=== PATIENT | female | born 1965 | race Caucasian/White ===

== ENCOUNTER → 2016-10-10 | Day surgery (SDC) | payer OTHER ==
--- NOTE | 2016-10-11 11:54 | PATH ---
Surgical Pathology Report Patient Name: GLENN MERCHANT [facility]. Rec. #: [id number] /Age/Gender: 1965 (Age: 51) / F Account: [id number] Location: [facility] RADIOLOGY U Taken: 10/10/2016 Received: 10/10/2016 Reported: 10/11/2016 Physicians: Scott Reynaga M.D. Specimen(s) Received LEFT BREAST 6:00 O'CLOCK 2 CM FN Clinical History Suspicious Left hypocholic mass 6:00, 2fn Final Diagnosis LEFT BREAST, 6:00 2 CM FROM NIPPLE, ULTRASOUND GUIDED NEEDLE CORE BIOPSY: BENIGN BREAST TISSUE WITH FIBROCYSTIC CHANGES INCLUDING STROMAL FIBROSIS AND DUCTAL DILATATION. Comment: Recommend correlation with clinical and radiologic findings and follow up as clinically indicated. Electronically Signed Edward Ford M.D. Gross Description Received in formalin labeled "left breast biopsy 6:00, 2cmfn," is a 1.8 x 1.4 x 0.2 cm aggregate of multiple kirk-yellow, irregular to cylindrical portions of fibroadipose tissue admixed with blood clot. The formalin is filtered and the specimen is entirely submitted in one cassette. Time to formalin fixation: 3 minutes Total formalin fixation time: Approximately 7 hours. /10/10/201610/10/2016
== END | disposition home or self-care (01) ==
LOC: FRADUS-SUR 09:54
PROVIDERS: ATTEND Internal Medicine Geriatric Medicine
PROC: 0HBU3ZX Excision of Left Breast, Percutaneous Approach, Diagnostic (ICD-10-PCS; principal; 2016-10-10)
DX: N63 Unspecified lump in breast (principal); N60.32 Fibrosclerosis of left breast; N64.89 Other specified disorders of breast
CPT/HCPCS: 19083; 87899; 88305-TC; A4648; G0206-TC

== ENCOUNTER 2017-06-23 07:16 | Emergency (ER) | payer OTHER ==
[2017-06-23 07:45] VITALS: BP 138/84; PULSE 94; TEMP 98.6; BMI 28.1
--- NOTE | 2017-06-23 09:08 | PDOC ---
History of Present Illness - General Chief Complaint: Rash Stated Complaint: RT SIDE PAIN Time Seen by Provider: 06/23/17 08:55 History Source: Patient Exam Limitations: No Limitations - History of Present Illness Initial Comments: 06/23/17 09:03 Patient states developed rash under right breast and around flank approximate 5 days ago. States had some tenderness and pain to that same side Monday. Onset of vesicular type rash started Monday and is progressively worsened. Was concerned that may be an ALLERGIC reaction so was using some [id number] medications but has not resolved. And in fact has spread. It had a mild URI symptoms last week. No fevers, no earache sore throat coughing sneezing. Numbness or tingling to hands no injury. Timing/Duration: reports: just prior to arrival, getting worse Severity: Yes: moderate Respiratory Risk Factors: reports: no cause identified Modifying Factors: improves with: antihistamine, scratching Associated Symptoms: reports: denies symptoms, blisters, change in skin texture. denies: fever Past History - Travel Traveled outside of the country in the last 30 days: No Close contact w/someone who was outside of country & ill: No - Past Medical History Allergies/Adverse Reactions: Allergies Allergy/AdvReac Type Severity Reaction Status Date / Time Penicillins Allergy Verified 06/23/17 07:22 SEAFOOD Allergy Uncoded 06/23/17 07:22 Home Medications: Ambulatory Orders Meclizine HCl [Antivert -] 25 mg PO TID #21 tablet 01/04/16 Multivitamins [Tab-A-Vit -] 1 tab PO DAILY 01/04/16 Valacyclovir HCl [Valtrex] 1,000 mg PO TID #21 tablet 06/23/17 Anemia: No Asthma: No Cancer: No Cardiac Disorders: No CVA: No COPD: No CHF: No Dementia: No Diabetes: No GI Disorders: No Disorders: No HTN: No Hypercholesterolemia: No Liver Disease: No Seizures: No Thyroid Disease: No Other medical history: DENIES. - Surgical History Abdominal Surgery: No Appendectomy: No Cardiac Surgery: No Cholecystectomy: No Lung Surgery: No Neurologic Surgery: No Orthopedic Surgery: No - Suicide/Smoking/Psychosocial Hx Smoking Status: No Smoking History: Never smoked Have you smoked in the past 12 months: No Number of Cigarettes Smoked Daily: 0 Hx Alcohol Use: No Drug/Substance Use Hx: No Substance Use Type: Alcohol Hx Substance Use Treatment: No Review of Systems - Review of Systems Able to Perform ROS?: Yes Is the patient limited Romansh proficient: Yes Constitutional: Yes: Symptoms Reported, See HPI, Fever, Malaise HEENTM: Yes: Symptoms Reported, See HPI, Nose Congestion, Throat Pain, Throat Swelling Respiratory: Yes: Symptoms reported, See HPI, Cough, Wheezing. No: Shortness of Breath Musculoskeletal: Yes: Symptoms Reported, See HPI Integumentary: Yes: Symptoms Reported, See HPI, Lesions, Pruritus, Rash, Other All Other Systems: Reviewed and Negative *Physical Exam - Vital Signs Last Vital Signs Temp Pulse Resp BP Pulse Ox 98.6 F 94 H 19 138/84 99 06/23/17 07:22 06/23/17 07:22 06/23/17 07:22 06/23/17 07:22 06/23/17 07:22 - Physical Exam General Appearance: Yes: Nourished, Appropriately Dressed, Apparent Distress, Mild Distress HEENT: positive: CEDRICK, Normal ENT Inspection, TMs Normal, Pharynx Normal Neck: positive: Supple Respiratory/Chest: positive: Lungs Clear, Other (patient with grouped vesicular lesions noted under right breast and along T8 dermatome consistent with appearance of shingles, unilateral, and multiple grouped areas) Gastrointestinal/Abdominal: positive: Soft. negative: Tender Extremity: positive: Normal Capillary Refill, Normal Inspection, Normal Range of Motion Integumentary: positive: Pale, Rash Neurologic: positive: trial mgr II-XII NML intact, Fully Oriented, Alert, Normal Mood/ Affect, Normal Response Progress Note - Progress Note Progress Note: Shingles to right chest wall. We'll treat with Valtrex, and patient encouraged to follow-up with employee health as should not be working until lesions have scabbed *DC/Admit/Observation/Transfer Diagnosis at time of Disposition: Shingles Qualifiers: Herpes zoster complications: without complications Qualified Code(s): B02.9 - Zoster without complications - Discharge Dispostion Disposition: HOME Condition at time of disposition: Stable - Prescriptions Prescriptions: Valacyclovir HCl [Valtrex] 1,000 mg PO TID #21 tablet - Referrals - Patient Instructions Printed Discharge Instructions: DI for Shingles Additional Instructions: Rest, keep cool and dry- avoid strenuous activity or hot /humid environments Less hot showers, no abrasive soaps May use heavy creams like Eucerin or Cetaphil to keep skin moist May apply Aveeno, calamine lotion, [id number]-[id number] hydrocortisone creams as needed for symptoms May use Benadryl at night for antihistamine, Zyrtec/ Flori or Claritin for daytime antihistamine use to help with itching This infection is secondary to same virus as chickenpox. If not contagious unless there are skin contact. However important to avoid association with very old, immunosuppressed, or very young patients who may not have been vaccinated against herpes zoster. You will need clearance from your physician to return to work Valtrex 1 g every 8 hours for one week May use eplt-ojf-xftylss hydrocortisone cream on all areas except face Try to identify cause for rash and avoid exposures Followup with PMD in one week if no resolution Make appointment with reading efficiency course director for evaluation when possible - Post Discharge Activity Forms/Work/School Notes: Back to Work
== END 2017-06-23 09:00 | disposition home or self-care (01) ==
LOC: JER 07:16
DX: B02.9 Zoster without complications (principal)
CPT/HCPCS: 99281-25

== ENCOUNTER 2017-12-06 07:09 | Emergency (ER) | payer OTHER ==
[2017-12-06 07:34] VITALS: BMI 29.0
--- NOTE | 2017-12-06 08:31 | PDOC ---
History of Present Illness - General Chief Complaint: Injury Stated Complaint: RIGHT FOOT INJURY Time Seen by Provider: 12/06/17 07:45 - History of Present Illness Initial Comments: 12/06/17 08:29 "The patient is a 52 year old female, with a significant past medical history of chronic back pain, who presents to the emergency department with left toe pain s/p left foot injury yesterday. The patient reports stubbing her left 5th toe into a chair while walking yesterday. Pt reports pain without swelling. States that she is able to ambulate without any pain. However, when she put on her shoe this morning, the pain increased. She denies any other trauma or injury. Patient reports she has been taking Tylenol for her symptoms with mild relief. She has been taping her toes left 4th and 5th toes with mild relief of pain. Allergies: Penicillins Past Surgical History: None reported Social History: Social ETOH use. No tobacco or recreational drug use. " Past History - Past Medical History Allergies/Adverse Reactions: Allergies Allergy/AdvReac Type Severity Reaction Status Date / Time Penicillins Allergy Verified 06/23/17 07:22 SEAFOOD Allergy Uncoded 06/23/17 07:22 Home Medications: Ambulatory Orders Meclizine HCl [Antivert -] 25 mg PO TID #21 tablet 01/04/16 Multivitamins [Tab-A-Vit -] 1 tab PO DAILY 01/04/16 Valacyclovir HCl [Valtrex] 1,000 mg PO TID #21 tablet 06/23/17 Anemia: No Asthma: No Cancer: No Cardiac Disorders: No CVA: No COPD: No CHF: No Dementia: No Diabetes: No GI Disorders: No Disorders: No HTN: No Hypercholesterolemia: No Liver Disease: No Seizures: No Thyroid Disease: No - Surgical History Abdominal Surgery: No Appendectomy: No Cardiac Surgery: No Cholecystectomy: No Lung Surgery: No Neurologic Surgery: No Orthopedic Surgery: No - Immunization History Immunization Up to Date: Yes - Suicide/Smoking/Psychosocial Hx Smoking Status: No Smoking History: Never smoked Have you smoked in the past 12 months: No Number of Cigarettes Smoked Daily: 0 Information on smoking cessation initiated: No Hx Alcohol Use: No Drug/Substance Use Hx: No Substance Use Type: Alcohol Hx Substance Use Treatment: No Review of Systems - Review of Systems Comments:: 12/06/17 08:31 "GENERAL/CONSTITUTIONAL: No fever or chills. No weakness. HEAD, EYES, EARS, NOSE AND THROAT: No change in vision. No ear pain or discharge. No sore throat. CARDIOVASCULAR: No chest pain or shortness of breath. RESPIRATORY: No cough, wheezing, or hemoptysis. GASTROINTESTINAL: No nausea, vomiting, diarrhea or constipation. GENITOURINARY: No dysuria, frequency, or change in urination. MUSCULOSKELETAL: +Left toe pain and ecchymosis. No joint or muscle swelling. No neck or back pain. SKIN: No rash NEUROLOGIC: No headache, vertigo, loss of consciousness, or change in strength/ sensation. ENDOCRINE: No increased thirst. No abnormal weight change. HEMATOLOGIC/LYMPHATIC: No anemia, easy bleeding, or history of blood clots. ALLERGIC/IMMUNOLOGIC: No hives or skin allergy. " *Physical Exam - Vital Signs Last Vital Signs Temp Pulse Resp BP Pulse Ox 98.4 F 77 15 131/87 100 12/06/17 07:30 12/06/17 07:30 12/06/17 07:30 12/06/17 07:30 12/06/17 07:30 - Physical Exam Comments: 12/06/17 08:31 "GENERAL: Awake, alert, and fully oriented, in no acute distress. HEAD: No signs of trauma EYES: PERRLA, EOMI, sclera anicteric, conjunctiva clear ENT: Auricles normal inspection, hearing grossly normal, nares patent, oropharynx clear without exudates. Moist mucosa NECK: Nontender, no stepoffs, Normal ROM, supple, no lymphadenopathy, JVD, or masses LUNGS: Breath sounds equal, clear to auscultation bilaterally. No wheezes, and no crackles HEART: Regular rate and rhythm, normal S1 and S2, no murmurs, rubs or gallops ABDOMEN: Soft, nontender, normoactive bowel sounds. No guarding, no rebound. No masses EXTREMITIES: + Mild tenderness at base of left 5th proximal phalange. No deformity. Normal range of motion, no edema. No clubbing or cyanosis. No cords , erythema. NEUROLOGICAL: Cranial nerves II through XII intact. 5/5 strength and sensation in all extremities, Normal speech, normal gait, normal cerebellar function SKIN: Warm, Dry, normal turgor, no rashes or lesions noted." ED Treatment Course - RADIOLOGY Radiology Studies Ordered: Category Date Time Status TOE(S) LEFT [RAD] Stat Radiology 12/06/17 07:54 Ordered Medical Decision Making - Medical Decision Making 12/06/17 08:31 52 F with L 5th toe pain after stubbing it yesterday. - XR toe 12/06/17 09:13 XR negative for acute fx. Pt's toes margoth taped for comfort. Pt is well appearing, with normal vitals. Clinically stable for DC at this time. I discussed the physical exam findings, ancillary test results and final diagnoses with the patient. I answered all of the patient's questions. The patient was satisfied with the care received and felt comfortable with the discharge plan and treatment plan. The patient agrees to follow up with the primary care physician within 24-72 hours. *DC/Admit/Observation/Transfer Diagnosis at time of Disposition: Toe pain - Discharge Dispostion Disposition: HOME - Referrals Referrals: Flaquita Huber [Primary Care Provider] - Dewayne Pennington MD [Staff Physician] - - Patient Instructions Printed Discharge Instructions: DI for Toe Sprain Additional Instructions: Tape your toe for comfort. If you experience worsening pain, swelling, or any other concerning symptoms, return to the ER immediately. Otherwise, follow up with an orthopedic surgeon for further evaluation of your pain. Call the number provided to make an appointment. - Post Discharge Activity Forms/Work/School Notes: Back to Work - Attestations Physician Attestion: 12/06/17 09:21 I, Dr. Jose Quintana MD, attest that this document has been prepared under my direction and personally reviewed by me in its entirety. I further attest, that it accurately reflects all work, treatment, procedures and medical decision -making performed by me.
[2017-12-06 09:44] VITALS: BP 157/88; PULSE 85; TEMP 979.8
== END 2017-12-06 09:43 | disposition home or self-care (01) ==
LOC: JER 07:09
DX: S99.822A Other specified injuries of left foot, initial encounter (principal); W22.03XA Walked into furniture, initial encounter; Y93.01 Activity, walking, marching and hiking; Y92.89 Other specified places as the place of occurrence of the external cause; Y99.8 Other external cause status
CPT/HCPCS: 73660-TC-FY; 99281-25

== ENCOUNTER 2019-07-22 07:20 | Emergency (ER) | payer OTHER ==
[2019-07-22 07:39] VITALS: BP 167/83; PULSE 83; TEMP 97.5; BMI 28.3
[2019-07-22] MEDS ORDERED: KETOROLAC TROMETHAMINE 60 MG/2 ML VIAL IM ONE (08:25)
[2019-07-22] MEDS ORDERED: ACETAMINOPHEN 325 MG TABLET (FP) PO ONE (08:25)
[2019-07-22] MEDS ORDERED: LIDOCAINE 5% TOPICAL PATCH TP ONE (08:25)
[2019-07-22] MEDS ORDERED: KETOROLAC TROMETHAMINE 60 MG/2 ML VIAL ONE (08:27)
[2019-07-22] MEDS ORDERED: LIDOCAINE 5% TOPICAL PATCH ONE ×2 (08:27→08:28)
[2019-07-22] MEDS ORDERED: ACETAMINOPHEN 325 MG TABLET (FP) ONE (08:27)
--- NOTE | 2019-07-22 08:36 | PDOC ---
History of Present Illness - General Chief Complaint: Back Pain Stated Complaint: BACK PAIN Time Seen by Provider: 07/22/19 07:53 History Source: Patient Exam Limitations: No Limitations Past History - Travel Traveled outside of the country in the last 30 days: No Close contact w/someone who was outside of country & ill: No - Past Medical History Allergies/Adverse Reactions: Allergies Allergy/AdvReac Type Severity Reaction Status Date / Time Penicillins Allergy Verified 07/22/19 08:22 SEAFOOD Allergy Uncoded 07/22/19 08:22 Home Medications: Ambulatory Orders NK [No Known Home Medication] 12/06/17 Anemia: No Asthma: No Cancer: No Cardiac Disorders: No CVA: No COPD: No CHF: No Dementia: No Diabetes: No GI Disorders: No Disorders: No HTN: No Hypercholesterolemia: No Liver Disease: No Seizures: No Thyroid Disease: No - Surgical History Abdominal Surgery: No Appendectomy: No Cardiac Surgery: No Cholecystectomy: No Lung Surgery: No Neurologic Surgery: No Orthopedic Surgery: No - Immunization History Immunization Up to Date: Yes - Psycho Social/Smoking Cessation Hx Smoking Status: No Smoking History: Never smoked Have you smoked in the past 12 months: No Number of Cigarettes Smoked Daily: 0 Information on smoking cessation initiated: No Hx Alcohol Use: No Drug/Substance Use Hx: No Substance Use Type: Alcohol Hx Substance Use Treatment: No Review of Systems - Review of Systems Able to Perform ROS?: Yes Comments:: 07/22/19 08:27 CONSTITUTIONAL: Absent: fever, chills, diaphoresis, generalized weakness, malaise, loss of appetite GASTROINTESTINAL: Absent: abdominal pain, abdominal distension, nausea, vomiting, diarrhea, constipation, melena, hematochezia GENITOURINARY: Absent: dysuria, frequency, urgency, hesitancy, hematuria, flank pain, genital pain MUSCULOSKELETAL: Present: low back pain Absent: arthralgia, joint swelling SKIN: Absent: rash, itching, pallor NEUROLOGIC: Absent: headache, focal weakness or paresthesias, dizziness, unsteady gait, seizure, mental status changes, bladder or bowel incontinence PSYCHIATRIC: Absent: anxiety, depression, suicidal or homicidal ideation, hallucinations. Is the patient limited Spanish proficient: No *Physical Exam - Vital Signs Last Vital Signs Temp Pulse Resp BP Pulse Ox 97.5 F L 83 16 167/83 100 07/22/19 07:27 07/22/19 07:27 07/22/19 07:27 07/22/19 07:27 07/22/19 07:27 - Physical Exam 07/22/19 08:27 GENERAL: Well developed, well nourished. Awake and alert. No acute distress. NECK: Supple. Full ROM. No lymphadenopathy. MUSCULOSKELETAL Normal range of motion at all joints. No bony deformities or tenderness. No CVA tenderness. EXTREMITIES: No cyanosis. No clubbing. No edema. No calf tenderness. SKIN: Warm and dry. Normal capillary refill. No rashes. No jaundice. NEUROLOGICAL: Alert, awake, appropriate. Cranial nerves 2-12 intact. No deficits to light touch and temperature in face, upper extremities and lower extremities. No motor deficits in the in face, upper extremities and lower extremities. Normoreflexic in the upper and lower extremities. Normal speech. Toes are down- going bilaterally. Gait is normal without ataxia. PSYCHIATRIC: Cooperative. Good eye contact. Appropriate mood and affect. Medical Decision Making - Medical Decision Making 07/22/19 08:27 The patient is a 54 y/o F with PMH of low back pain, presents to the ER for an evaluation of low back pain. She works in house keeping for the hospital. She states that two weeks ago she pulled her low back. She was evaluated at urgent care and told she has a muscle spasm. She was taking ibuprofen and flexril with relief of symptoms. She states that this past Monday the pain came back. She states that the ibuprofen has no longer been helping the pain. She stopped taking the flexeril because it made her dizzy. She denies fevers, chills, n/v/d , saddle anesthesia, bladder/bowel incontinence and leg pain. A/P: Low back pain -Pt with TTP of the B/L paraspinous muscles, L3-L5, with palpable knot consistent with muscle spasm. No midline tenderness, (-) straight leg raise testing -Likely acute on chronic pain -No trauma, or fever. No saddle anesthesia or bladder/bowel incontinence. No CVA tenderness. -Pt is neurologically intact on exam with no focal findings. -Toradol given with relief of symptoms -DC home. Ortho and primary care follow up given for if symptoms do not resolve. -I discussed the physical exam findings, ancillary test results and final diagnoses with the patient. I answered all of the patient's questions. The patient was satisfied with the care received and felt comfortable with the discharge plan and treatment plan. The Patient agrees to follow up with the primary care physician/specialist within 24-72 hours. Return precautions were given. Discharge - Discharge Information Problems reviewed: Yes Clinical Impression/Diagnosis: Low back pain Qualifiers: Chronicity: acute Back pain laterality: bilateral Sciatica presence: without sciatica Qualified Code(s): M54.5 - Low back pain Condition: Stable Disposition: HOME - Admission No - Follow up/Referral Referrals: Ruiz Hart MD [Primary Care Provider] - Munir Gomez DO [Staff Physician] - - Patient Discharge Instructions Patient Printed Discharge Instructions: DI for Low Back Pain Additional Instructions: You have low back pain due to a muscle spasm. Please take ibuprofen 800 mg 3 times a day not to exceed 3000 mg a day. You were also prescribed Robaxin. Please take this medication twice a day. Do not drive after taking this medication as it may make you sleepy. You may use warm compresses on your back to help with her symptoms. Please follow-up with your primary care doctor. If your symptoms do not resolve in 3-5 days, follow-up with orthopedics. A referral has been provided for you. Return to the emergency department if you have worsening back pain, bladder or bowel incontinence, numbness and tingling in her legs, changes in the way you walk, or any new or worsening symptoms. Tiene dolor lumbar debido a un espasmo muscular. [place] ibuprofeno 800 mg 3 veces al da sin exceder los 3000 mg al da. Tambin le recetaron Robaxin. Por favor tome kishan medicamento dos veces al da. No conduzca despus de rosa m kishan medicamento, ya que puede causarle sueo. Puede usar compresas tibias en la espalda para ayudarla con myra sntomas. [place] un seguimiento con dong mdico de atencin primaria. Si myra sntomas no se resuelven en 3-5 [place], [place] un seguimiento con ortopedia. Se le cee proporcionado ky referencia. Regrese al departamento de emergencias si tiene empeoramiento del dolor de espalda, incontinencia de vejiga o intestino, entumecimiento y hormigueo en las piernas, cambios en la forma de caminar o cualquier sntoma nuevo o que empeore. Print Language: MONGOLIAN - Post Discharge Activity Work/Back to School Note: Back to Work
== END 2019-07-22 08:42 | disposition home or self-care (01) ==
LOC: JER 07:20
PROC: 3E0233Z Introduction of Anti-inflammatory into Muscle, Percutaneous Approach (ICD-10-PCS; principal; 2019-07-22)
DX: M54.5 Low back pain (principal); M62.830 Muscle spasm of back
CPT/HCPCS: 99284-25